=== PATIENT | female | born 1955 | race Caucasian/White ===

== ENCOUNTER 2016-11-05 03:00 | Emergency (ER) | payer BC ==
--- NOTE | 2016-11-05 03:31 | ERNOTE ---
Medical Problem HPI - Narrative Date of Service: 11/05/16 - General Chief Complaint: General Assessment Time Seen by Provider: 11/05/16 03:20 Source: patient Exam Limitations: no limitations - Immun/Allergies/Home Medications Immunizations: IMMUNIZATION HX Immunizations Up to Date Yes History of Influenza Vaccine Yes Hx Pneumococcal Vaccination Yes Allergies/Adverse Reactions: Allergies morphine Allergy (Verified 07/16/14 13:59) Other Home Medications: HOME MEDICATIONS Aspirin [Aspirin Chewable] 81 mg PO DAILY 06/02/12 [Last Taken 06/01/12] Duloxetine HCl [Cymbalta] 60 mg PO BID 06/02/12 [Last Taken 05/30/12] Metoprolol Succinate 25 mg PO DAILY 06/02/12 [Last Taken 05/30/12] Nitroglycerin 0.4 mg SL [id number] PRN 06/02/12 [Last Taken Unknown] Ranolazine [Ranexa] 500 mg PO BID 06/02/12 [Last Taken Unknown] Simvastatin 80 mg PO DAILY 06/02/12 [Last Taken Unknown] Topiramate 50 mg PO BID 06/02/12 [Last Taken Unknown] Trazodone HCl 150 mg PO HS 06/02/12 [Last Taken Unknown] traMADol HCL [Tramadol HCl ER] 100 mg PO DAILY 06/02/12 [Last Taken Unknown] HYDROcodone/ACETAMINOPHEN [Vicodin Es 7.5-300 mg Tablet] 1 each PO PRN PRN 07/16 [Last Taken Unknown] Buprenorphine [Butrans] 7.5 mg TD 3XW 11/05/16 [Last Taken Unknown] - History of Present History Narrative: 61 year old that fell on her left side hitting her ribs; the same day she noticed blood after wiping after using the toilet. She fell due to not seeing her cat that was on the lower step. She is unsure if the blood came from her vagina or rectum. Does admit to having hemorrhoids. She has been to a pain clinic for chronic pain. Pain is increased with movement, and denies any shortness of breath. Has been feeling weak today and has had chest pain with movement. s/p hysterectomy. Timing: constant Severity: moderate Modifying Factors - (Improves): Present: rest Modifying Factors - (Worsens): Present: movement Review of Systems - Review of Systems Constitutional: Present: weakness EYE: Present: no symptoms reported ENT: Present: no symptoms reported Respiratory: Present: no symptoms reported Cardiology: Present: no symptoms reported Gastrointestinal/Abdominal: Present: no symptoms reported Genitourinary: Present: no symptoms reported Musculoskeletal: Present: See HPI Skin: Present: no symptoms reported Neurological: Present: no symptoms reported Endocrine: Present: no symptoms reported Hematologic/Lymphatic: Present: no symptoms reported Psych: Present: no symptoms reported - Patient's Past Medical History Patient History - Medical: Anxiety, Chronic Pain, Hypothyroidism Patient History - Cancer: No Hx of Cancer Patient History - Surgical Procedures: Appendectomy, Back Surgery, Cholecystectomy, Hysterectomy, Total Knee Replacement Patient History - Other: None - Social History Living Situations: home Abuse History: No History of abuse Psych History: Hx of Anxiety, Hx of Depression, Hx of Bipolar Disorder Smoking Status: Current some day smoker Have you smoked in the past 12 months: Yes Do you dip or chew tobacco: No Alcohol Use: rarely Drug Use: none - Immunizations Immunizations Up to Date: Yes Hx Pneumococcal Vaccination: Yes History of Influenza Vaccine: Yes Physical Exam - Physical Exam Narrative: Does not appear to be in any pain during the interview. On several occasions she would site different reasons for primarily being seen at this time of the morning. Claims she was not asleep at 0300 hours. General Appearance: Present: no apparent distress Eye Exam: Normal inspection: bilateral Ears, Nose, Throat: Present: normal ENT inspection Neck: Present: normal inspection, supple, full range of motion Respiratory: Present: no respiratory distress Cardiovascular/Chest: Present: regular rate, rhythm Gastrointestinal/Abdominal: Present: nontender Rectal Exam: Present: normal rectal tone Back Exam: Present: normal inspection Extremity Exam: Present: normal inspection Neurological Exam: Present: alert, oriented Skin Exam: Present: normal color ED Progress - Results and Orders Patient's Lab Results:: I have reviewed the patient's lab results. - Vital Signs Patient's Vital Signs:: I have reviewed the patient's vital signs. Vital Signs: Vital Signs 11/05/16 03:04 Temperature 36.5 C Respiratory 16 Rate Blood Pressure 102/56 O2 Sat by Pulse 98 Oximetry - EKG EKG: NSR, abnormal Q waves EKG read: Interp. by me EKG Comments: axis is indeterminate - X-Ray X-Ray #1 X-Ray: chest Interpretation: Interp. by me X-ray Comments: No rib fractures or pneumothorax. - Progress/Reassessment Chief Complaint: General Assessment Departure - Departure Clinical Impression: Rib injury Disposition: Home self-care Condition: Good Instructions: Rib Contusion Referrals: Malgorzata Mittal MD [Primary Care Provider] -
[2016-11-05 03:46] LABS: Hemoglobin 10.1 gm/dL (12.5-16.0); Mean Corpuscular Hemoglobin 34.4 pg (27-31); Mean Corpuscular Hgb Conc 33.7 g/dl (32-36); Mean Platelet Volume 9.8 fl (6.0-9.5); Neutrophil # 4.9 K/mm3 (1.3-6.0); Neutrophil % 54.4 % (42-75.0); Platelet Count 196 K/mm3 (150-450); Red Blood Count 2.94 M/mm3 (4.2-5.4); Red Cell Distribution Width 12.2 % (11.5-14.0); White Blood Count 9.1 K/mm3 (4.0-10.5)
[2016-11-05 04:05] LABS: ALT 25 U/L (19-67); AST 16 U/L (0-48); Alkaline Phosphatase * 60 U/L (50-170); Anion Gap 12.2 mmol/L (6.8-13.8); BUN/Creatinine Ratio 17.6 (9.0-21.6); Bilirubin, Total 0.2 mg/dL (0.0-1.1); Blood Urea Nitrogen 15 mg/dL (3-23); Ca. Corrected For Albumin 9.5 mg/dL (8.4-10.2); Carbon Dioxide 27.2 mmol/L (24-32.6); Chloride 105 mmol/L (97-106); Glucose * 106 mg/dL (70-110); Potassium 3.4 mmol/L (3.4-4.6); Sodium 141 mmol/L (132-142); Total Protein 6.2 gm/dL (6.2-8.2); Troponin I Less than 0.017 ng/ml (0.00-0.10)
[2016-11-05 04:31] LABS: Urine Bilirubin Negative (NEGATIVE); Urine Blood Negative /ul (NEGATIVE); Urine Ketone Negative (NEGATIVE); Urine Nitrite Negative (NEGATIVE); Urine Protein Negative (NEGATIVE); Urine Urobilinogen Normal (NORMAL)
[2016-11-05 04:43] LABS: Cocaine Ur Negative (NEGATIVE); Urine Barbiturate Negative (NEGATIVE); Urine Benzodiazepines Negative (NEGATIVE); Urine PCP Negative (NEGATIVE); Urine THC Negative (NEGATIVE)
[2016-11-05 04:46] LABS: Urine Amorphous Sediment Few - 1+ (NONE-FEW); Urine Appearance Clear; Urine Bacteria TRACE; Urine Color Yellow; Urine RBC None Seen /hpf (0-5); Urine WBC None Seen /hpf (0-5)
[2016-11-05 04:47] LABS: Urine Opiates Positive (NEGATIVE)
[2016-11-05] MEDS ORDERED: KETOROLAC TROMETHAMINE 30 MG/ML VIAL IM ONE (05:36)
[2016-11-05] MEDS ORDERED: KETOROLAC TROMETHAMINE 30 MG/ML VIAL ONE (05:39)
--- OUTSIDE RECORDS SUMMARY | 2016-11-05 05:40 | XMS REPORT | Continuity of Care Document ---
:1955 Author Organization [facility] [employer] [place] [address] Care Team Providers Name Role Phone Unavailable Primary Care Provider Unavailable Source Comments This disclosure is being made pursuant to the [employer] program and maynot contain all information available regarding this patient.[facility] Active Allergies and Adverse Reactions Not on File Current Medications Be aware that medications may not be up to date as of this document. Alwaysverify current medications with the patient. Not on file Active Problems Not on file Social History Tobacco Use Types Packs/Day Years Used Date Never Assessed Plan of Care Health Maintenance Due Date Last Done Comments Retired-Pertussis Vaccine Adult 1975 Retired-Tetanus Vaccine Adult 1975 Pap Smear 1977 Mammogram 1996 Well Adult Visit 2006 Colonoscopy 04/02/2012 04/02/2002 Retired-INFLUENZA VACCINE 01/11/2015 Results from Last 3 Months Not on file
[2016-11-05 06:00] VITALS: BP 111/76
== END 2016-11-05 05:57 | disposition home or self-care (01) ==
LOC: ER 03:00
DX: R07.81 Pleurodynia (principal); W10.2XXA Fall (on)(from) incline, initial encounter; Y93.9 Activity, unspecified; Y92.008 Other place in unspecified non-institutional (private) residence as the place of occurrence of the external cause; F51.9 Sleep disorder not due to a substance or known physiological condition, unspecified; G89.29 Other chronic pain; E03.9 Hypothyroidism, unspecified; Z72.0 Tobacco use
CPT/HCPCS: 36415; 71020; 80053; 80307; 81001; 82272; 84484; 85025; 93005; 96372; 99284; G0481